=== PATIENT | female | born 1985 | race Caucasian/White ===

== ENCOUNTER 2020-11-05 20:06 | Emergency (ER) | payer BC ==
[~2020-11-05 20:06] MED LIST: LEXAPRO20 M1 PO
[2020-11-05] MEDS ORDERED: CAMRESE1 TAB PO (20:42)
[2020-11-05 21:17] LABS: BASO # 0.1 (0.02-0.10); EOS # 0.1 (0.04-0.40); EOS % 1.9 % (1.0-5.0); HEMATOCRIT 37.3 % (37.0-47.0); HEMOGLOBIN 11.6 g/dL (12.5-16.0); LYMPH# 2.9 (1.50-4.00); MEAN CELL VOLUME 82 fl (78-100); MEAN CORPUSCULAR HEMOGLOBIN 25 pg (27-31); MEAN CORPUSCULAR HGB CONC 31 g/dL (33-37); MEAN PLATELET VOLUME 11.4 fl (7.4-10.4); MONO # 0.4 (0.20-0.80); NEU # 3.4 (1.40-6.50); PLATELET COUNT 280 K/mm3 (130-400); RED BLOOD COUNT 4.57 M/mm3 (4.10-5.30); RED CELL DISTRIBUTION WIDTH 14.9 % (11.5-14.5); WHITE BLOOD COUNT 6.9 K/mm3 (4.8-10.8)
[2020-11-05 21:21] LABS: POTASSIUM 3.9 mmol/L (3.5-5.1)
[2020-11-05 21:22] LABS: CALCIUM 9.3 mg/dL (8.3-10.5)
[2020-11-05 21:54] LABS: URINE APPEARANCE CLOUDY; URINE BILIRUBIN NEGATIVE (NEGATIVE); URINE BLOOD 250 ery/uL (NEGATIVE); URINE COLOR OTHER; URINE GLUCOSE NEGATIVE (NEGATIVE); URINE KETONE NEGATIVE (NEGATIVE); URINE LEUKOCYTE ESTERASE 1+ (NEGATIVE); URINE NITRATE NEGATIVE (NEGATIVE); URINE PROTEIN(semi-quant) TRACE mg/dL (NEGATIVE); URINE UROBILINOGEN NORMAL (NORMAL)
[2020-11-05] MEDS ORDERED: MACROBID 100 M100 MG PO (22:42)
[2020-11-05 22:56] VITALS: BP 141/80
== END 2020-11-05 22:56 | disposition home or self-care (01) ==
LOC: ED 20:06
PROVIDERS: Family Medicine
DX: N20.1 Calculus of ureter (principal); R82.81 Pyuria; Z32.02 Encounter for pregnancy test, result negative
CPT/HCPCS: J0595; J1885; J2405; J2765; J7030; Q9967